=== PATIENT | male | born 1980 | race Caucasian/White ===

== ENCOUNTER 2017-10-13 10:29 | Emergency (ER) | payer MEDICAID ==
[~2017-10-13] VITALS: Ht 182.9 cm; Wt 81.6 kg
[2017-10-13 10:30] VITALS: BP_SYST 133
--- NOTE | 2017-10-13 10:30 | NUR ---
BROUGHT IN BY [facility], PLACED IN BED #3 AND TRIAGED, REPORT GIVEN TO SONYA/FLOWER
[2017-10-13] MEDS ORDERED: ONDANSETRON HCL 4 MG/2 ML VIAL ONE (10:40)
--- NOTE | 2017-10-13 10:43 | NUR ---
Medication administered. Pt tolerated well. No adverse reactions noted.
[2017-10-13] MEDS ORDERED: ONDANSETRON HCL 4 MG/2 ML VIAL IVP ONE ×3 (10:45→11:15)
--- NOTE | 2017-10-13 10:47 | NUR ---
Pt complains of rectal bleeding for the past 2 days, pt states it has been coming out more today. Pt complains of abdominal pain and nausea but denies vomiting or fever. Pt has mouth wired shut and wire cutters are placed at bedside. Pt is able to ambulate and states no difficulty breathing at this time. No other injuries/complaints per pt or noted.
--- NOTE | 2017-10-13 10:55 | NUR ---
ER Dr. MAR at bedside examining patient.
[2017-10-13] MEDS ORDERED: NACL 0.9% 1,000 ML IV SCH (11:05)
[2017-10-13] MEDS ORDERED: HYDROmorphone 1 MG INJ. 1 MG/ML AMPUL IVP ONE ×2 (11:15→14:00)
--- NOTE | 2017-10-13 11:30 | NUR ---
Pt is resting in bed comfortably with no noted distress or discomfort.
[2017-10-13 11:40] LABS: ANION GAP 9 (5-15); BASOPHILS % (AUTO) 0.4 % (0.0-2.0); CALCIUM 9.4 mg/dL (8.4-11.0); CHLORIDE 103 mmol/L (98-107); CREATININE 1.03 mg/dL (0.55-1.30); EOSINOPHILS % (AUTO) 0.9 % (0.0-4.0); GLUCOSE 97 mg/dL (70-99); HEMATOCRIT 33.7 % (36-54); HEMOGLOBIN 11.2 g/dL (14.0-18.0); LYMPHOCYTES % (AUTO) 18.5 % (20.5-51.5); MEAN CORPUSCULAR HEMOGLOBIN 28 pg (27-31); MEAN CORPUSCULAR HGB CONC 33 % (32-36); MEAN CORPUSCULAR VOLUME 84 fL (79.0-98.0); MONOCYTES # (AUTO) 0.2 K/uL (0.0-1.0); NEUTROPHILS # (AUTO) 4.1 K/uL (1.8-7.7); NEUTROPHILS % (AUTO) 76.2 % (40.0-70.0); PLATELET COUNT (AUTO) 392 K/uL (130-430); POTASSIUM 4.3 mmol/L (3.5-5.1); RED BLOOD CELL COUNT(AUTO) 4.03 MIL/uL (4.2-6.2); RED CELL DISTRIBUTION WIDTH 14.3 % (9.0-15.0); SODIUM SERUM 140 mmol/L (136-145); UREA NITROGEN, BLOOD 8 mg/dL (8-21); WHITE BLOOD COUNT (AUTO) 5.3 K/uL (4.8-10.8)
[2017-10-13 11:45] LABS: INR 1.1 (0.80-1.20); PROTHROMBIN TIME 11.5 SECS (9.5-12.5)
[2017-10-13 11:52] LABS: ALANINE AMINOTRANSFERASE 17 U/L (12-78); ALBUMIN 3.9 g/dL (3.4-4.8); AMYLASE 17 U/L (0-100); ASPARTATE AMINOTRANSFERASE 14 U/L (10-37); LIPASE 114 U/L (73-393); TOTAL BILIRUBIN 0.4 mg/dL (0.0-1.0)
[2017-10-13 11:56] LABS: GFR AFRICAN AMERICAN 105 mL/min (>90)
--- NOTE | 2017-10-13 12:10 | NUR ---
Medications given to pt, tolerated it well. No noted adverse reaction, will continue
[2017-10-13] MEDS ORDERED: NACL 0.9% 1,000 ML IV ONE (12:45)
[2017-10-13] MEDS ORDERED: IOHEXOL 100 ML IV ONE (13:11)
--- NOTE | 2017-10-13 13:16 | NUR ---
Pt went to radiology in stable condition
--- NOTE | 2017-10-13 13:28 | NUR ---
Pt returned from radiology in stable condition.
[2017-10-13 13:33] LABS: BILIRUBIN,URINE NEGATIVE (NEGATIVE); BLOOD, URINE NEGATIVE (NEGATIVE); CLARITY/URINE CLEAR (CLEAR); COLOR,URINE YELLOW (YELLOW); GLUCOSE,URINE NEGATIVE (NEGATIVE); KETONES,URINE NEGATIVE (NEGATIVE); LEUKOCYTE ESTERASE ,URINE NEGATIVE (NEGATIVE); NITRITE, URINE NEGATIVE (NEGATIVE); PROTEIN URINE NEGATIVE (NEGATIVE); UROBILINOGEN,URINE 0.2 (0.2-1.0)
--- NOTE | 2017-10-13 14:07 | NUR ---
Medication administered. Pt tolerated well. No adverse reactions noted.
[2017-10-13 14:51] VITALS: BP_SYST 125
--- NOTE | 2017-10-13 14:51 | NUR ---
Patient given written and verbal discharge instructions and verbalizes understanding. ER MD discussed with patient the results and treatment provided. Patient in stable condition. ID arm band removed. IV catheter removed intact and dressing applied, no active bleeding. Rx of oxycodone and zofran given. Patient educated on pain management and to follow up with PMD. Pain Scale 2. Opportunity for questions provided and answered.
== END 2017-10-13 14:51 | disposition home or self-care (01) ==
LOC: SED 10:29
DX: K50.90 Crohn's disease, unspecified, without complications (principal); D64.9 Anemia, unspecified; F43.10 Post-traumatic stress disorder, unspecified; Z85.038 Personal history of other malignant neoplasm of large intestine; Z88.8 Allergy status to other drugs, medicaments and biological substances
CPT/HCPCS: 36415; 71010; 74177; 80053; 81003; 82150; 82272; 83605; 83690; 84484; 85025; 85610; 85730; 86886; 86900; 86901; 87040; 93005; 96361; 96374; 96375; 96376; 99285; J1170; J2405; J7030; Q9967

== ENCOUNTER 2017-11-06 15:14 | Emergency (ER) | payer MEDICAID ==
[~2017-11-06] VITALS: Ht 182.9 cm; Wt 72.6 kg
[~2017-11-06 15:14] MED LIST: ADAL40PE SQ; ALPR2TAB7 PO; ARIP10TA14 PO; COLE1TAB PO; HYDR4TAB26 PO; LEVE750T4 PO; MESA500C PO; MESA800T PO; PRED20TA PO; PRO20 PO; ZOLP10TA2 PO
[2017-11-06 15:28] VITALS: BP_SYST 121
[2017-11-06 16:54] LABS: BASOPHILS % (AUTO) 0.2 % (0.0-2.0); HEMATOCRIT 34.1 % (36-54); HEMOGLOBIN 10.9 g/dL (14.0-18.0); LYMPHOCYTES # (AUTO) 0.5 K/uL (1.0-5.5); LYMPHOCYTES % (AUTO) 4.3 % (20.5-51.5); MEAN CORPUSCULAR HEMOGLOBIN 27 pg (27-31); MEAN CORPUSCULAR HGB CONC 32 % (32-36); MEAN CORPUSCULAR VOLUME 84 fL (79.0-98.0); MONOCYTES # (AUTO) 0.3 K/uL (0.0-1.0); MONOCYTES % (AUTO) 2.8 % (1.7-9.3); NEUTROPHILS # (AUTO) 9.8 K/uL (1.8-7.7); NEUTROPHILS % (AUTO) 92.7 % (40.0-70.0); PLATELET COUNT (AUTO) 341 K/uL (130-430); RED BLOOD CELL COUNT(AUTO) 4.07 MIL/uL (4.2-6.2); RED CELL DISTRIBUTION WIDTH 14.7 % (9.0-15.0); WHITE BLOOD COUNT (AUTO) 10.6 K/uL (4.8-10.8)
[2017-11-06 16:57] LABS: BILIRUBIN,URINE NEGATIVE (NEGATIVE); BLOOD, URINE NEGATIVE (NEGATIVE); CLARITY/URINE CLEAR (CLEAR); COLOR,URINE YELLOW (YELLOW); GLUCOSE,URINE NEGATIVE (NEGATIVE); KETONES,URINE NEGATIVE (NEGATIVE); LEUKOCYTE ESTERASE ,URINE NEGATIVE (NEGATIVE); NITRITE, URINE NEGATIVE (NEGATIVE); PROTEIN URINE NEGATIVE (NEGATIVE); UROBILINOGEN,URINE 0.2 (0.2-1.0)
[2017-11-06 17:05] LABS: ANION GAP 10 (5-15); CALCIUM 9.2 mg/dL (8.4-11.0); CHLORIDE 100 mmol/L (98-107); CREATININE 0.94 mg/dL (0.55-1.30); GLUCOSE 174 mg/dL (70-99); POTASSIUM 3.9 mmol/L (3.5-5.1); SODIUM SERUM 136 mmol/L (136-145); UREA NITROGEN, BLOOD 15 mg/dL (8-21)
[2017-11-06 17:09] LABS: ALANINE AMINOTRANSFERASE 25 U/L (12-78); ALBUMIN 3.6 g/dL (3.4-4.8); ASPARTATE AMINOTRANSFERASE 11 U/L (10-37); GFR AFRICAN AMERICAN 116 mL/min (>90); LIPASE 120 U/L (73-393); TOTAL BILIRUBIN 0.2 mg/dL (0.0-1.0)
[2017-11-06 17:10] LABS: ALCOHOL, BLOOD < 3 mg/dL (<10)
[2017-11-06 17:11] LABS: INR 1.2 (0.80-1.20); PROTHROMBIN TIME 12.1 SECS (9.5-12.5)
[2017-11-06 17:13] LABS: BARBITURATE, URINE NEGATIVE (NEG <=200); BENZODIAZEPINE, URINE POSITIVE (NEG <=150); CANNABINOID, URINE NEGATIVE (NEG <=50); COCAINE, URINE NEGATIVE (NEG <=150); METHAMPHETAMINES SCREEN,URINE NEGATIVE (NEG <=500); OPIATE, URINE NEGATIVE (NEG <=100); PHENCYCLIDINE SCREEN,URINE NEGATIVE (NEG <=25); UR TRICYCLIC ANTIDEPRESSANTS NEGATIVE (NEG <=300); URINE AMPHETAMINE NEGATIVE (NEG <=500); URINE METHADONE NEGATIVE (NEG <=200); URINE OXYCODONE SCREEN NEGATIVE (NEG <=100); URINE PROPOXYPHENE SCREEN NEGATIVE (NEG <=300)
[2017-11-06] MEDS ORDERED: NACL 0.9% 1,000 ML IV ONE (17:30)
[2017-11-06] MEDS ORDERED: ONDANSETRON HCL 4 MG/2 ML VIAL IVP ONE ×2 (17:30→19:30)
[2017-11-06] MEDS ORDERED: HYDROmorphone 1 MG INJ. 1 MG/ML AMPUL IVP ONE ×2 (17:30→19:30)
[2017-11-06 17:38] LABS: ACETAMINOPHEN 4 ug/mL (1-30)
[2017-11-06] MEDS ORDERED: MAGNESIUM CITRATE 300 ML ORAL SOLUTION PO ONE (18:00)
[2017-11-06] MEDS ORDERED: MAGNESIUM CITRATE 300 ML ORAL SOLUTION ONE (18:34)
[2017-11-06 19:50] VITALS: BP_SYST 125
== END 2017-11-06 19:50 | disposition home or self-care (01) ==
LOC: SED 15:14
DX: K59.00 Constipation, unspecified (principal); F43.10 Post-traumatic stress disorder, unspecified; Z90.49 Acquired absence of other specified parts of digestive tract; Z90.89 Acquired absence of other organs; Z91.018 Allergy to other foods; Z79.899 Other long term (current) drug therapy; Z88.2 Allergy status to sulfonamides; Z88.8 Allergy status to other drugs, medicaments and biological substances; Z85.038 Personal history of other malignant neoplasm of large intestine
CPT/HCPCS: 36415; 74176; 80053; 80307; 81003; 82272; 83690; 85025; 85610; 85730; 96361; 96374; 96375; 96376; 99285; G0480; G0481; G0482; J1170; J2405; J7030